=== PATIENT | female | born 1985 | race Caucasian/White ===

== ENCOUNTER 2016-06-18 | Emergency (ER) | payer MEDICARE ==
[~2016-06-18] MED LIST: COLACE 100MG C100 MG PO
[2016-06-19 01:07] LABS: HEMOGLOBIN 15.1 gm/dl (12.3-15.3); WHITE BLOOD COUNT 6.1 K/UL (4.5-11.0)
[2016-06-19 01:11] LABS: BUN/CREATININE RATIO 20 (0-10)
== END 2016-06-19 06:15 | disposition home or self-care (01) ==
PROVIDERS: Specialist/Technologist Athletic Trainer
DX: R10.11 Right upper quadrant pain (principal); F17.200 Nicotine dependence, unspecified, uncomplicated
CPT/HCPCS: 36415; 80053; 80307; 81001; 82140; 82248; 83690; 83880; 84703; 85007; 85027; 85610; 85730; 96360; 99284; J7050; Q9962